=== PATIENT | male | born 1975 | race Caucasian/White ===

== ENCOUNTER 2024-11-02 19:10 | Emergency (ER) | payer SELFPAY ==
[~2024-11-02] VITALS: Ht 175.3 cm; Wt 102.1 kg
--- NOTE | 2024-11-02 19:22 | EKG ---
[facility] Test Date: 2024-11-02 Test Time: 19:17:26 Pat Name: MISBAH SEGUNDO Department: ED Room: Gender: M Spring Former Machine: [facility] : 1975 Requested By: CHEPE GOLDMAN Order Number: [id number] Reading MD: Yuriy Allen Measurements Intervals [place] Rate: 115 P: 0 DE: 0 QRS: 33 QRSD: 90 T: 0 QT: 321 QTc: 446 Interpretive Statements Atrial fibrillation Low voltage, precordial leads Nonspecific T abnormalities, diffuse leads No previous ECG available for comparison Electronically Signed On 11-03-2024 12:12:11 ALUMINUM HYDROXIDE PROCESS OPERATOR by Yuriy Allen Please click the below link to view image of tracing.
--- NOTE | 2024-11-02 19:29 | ERN ---
ED Note History of Present Illness Stated Complaint: STERNAL CHEST PAIN, SUBSIDED Chief Complaint: Chest Pain Time Seen by MD: 19:13 Dictation: This is a 49-year-old male sent from [facility] correction[facility] for evaluation of a substernal chest pain. Apparently patient started complaining of pain around 5:25 p.m. and it appears that the facility gave him aspirin. By the time he came to the ER his chest pain has subsided. He denied any loss of consciousness but does admit to some palpitations. He stated that when he started feeling the chest discomfort he went back to his bunk and wanted to rest. He got up to go get some water when he felt dizzy. No diaphoresis. He is afebrile 97.8 heart rate 116 respirations 16 blood pressure 130/75 with a pulse oximetry of 98% on room air His chronic medical problems include coronary artery disease with a history of VA and stents, hypertension. Patient stated that he had 1 stent put in in [place] for years ago. Also reports irregular heart rhythm in the past but does not recall being placed on any kind of anticoagulation other than the aspirin Allergies: Coded Allergies: No Known Drug Allergies (Unverified Allergy, Unknown, 11/02/24) Past Medical History Past Medical History: CAD, Heart Disease, Hypertension, VA Surgical History: Other Surgical History Other: STENT PLACEMENT Family History: Negative Social History: Negative RN Note Reviewed/Agreed w/PFSH: Yes Review of System Dictation Constitutional: Negative for fever,chills, and weight loss Eyes: Negative for injury, pain,redness, and discharge ENT: Negative for injury,pain or swelling Cardiovascular: Positive for chest pain, palpitations, and edema Respiratory: Negative for shortness of breath, cough, and wheezing, Abdomen/GI: Negative for abdominal pain, nausea, vomiting, diarrhea, and constipation Back: Negative for injury and pain : Negative for injury, bleeding and discharge MS/Extremity: Negative for injury and deformity Skin: Negative for rash, and discoloration Neuro: Negative for headache, weakness, numbness, tingling, and seizure Psych: Negative for suicide ideation, homicidal ideation, and hallucinations Initial Vital Sign VS Vital Signs Date Time Temp Pulse Resp B/P (MAP) Pulse Ox O2 Delivery O2 Flow Rate FiO2 11/02/24 19:12 97.9 116 16 130/75 98 Room Air* 0 21 Physical Exam Dictation General: awake, alert, NAD obese handcuffs on both the hands to the front and also change on the legs. Officers at bedside Head/Face: Normocephalic, atraumatic Eyes: PERRL, EOMI, vision at baseline ENT: oral cavity clear, TMs clear, no signs of infection Neck: Trachea midline, supple, no nuchal rigidity Cardiovascular: RRR, normal S1/S2, No MRGs, no JVD Respiratory: CTAB, no respiratory distress, No rales or wheezes Abdomen: Soft, non-tender, obese, normal bowel sounds, no guarding or rebound. Skin: Warm, dry, normal turgor, no rash MS/Extremity: Pulses equal, no cyanosis, neurovascular intact, FROM Neuro: COAx4, GCS 15, strength 5/5, CN 2-12 intact, normal cerebellar exam, normal gait, Psych: Normal behavior, mood, and affect normal Extremities-trace edema without any palpable cords, Homans sign is negative Results (Laboratory/Radiology) Laboratory/Radiology Laboratory Tests Test 11/02/24 19:31 White Blood Count 8.5 K/uL (4.8-10.8) Red Blood Count 4.84 MIL/uL (4.50-6.20) Hemoglobin 14.2 g/dL (14.0-18.0) Hematocrit 42.1 % (42-54) Mean Corpuscular Volume 87.0 fL (79-99) Mean Corpuscular Hemoglobin 29.3 pg (27.0-33.0) Mean Corpuscular Hemoglobin Concent 33.7 g/dL (32.0-36.0) Red Cell Distribution Width 12.3 % (11.0-15.5) Platelet Count 266 K/uL (130-400) Mean Platelet Volume 9.4 fL (7.5-10.5) Immature Granulocyte % (Auto) 1.7 % (0-1) H Neutrophils (%) (Auto) 69.1 % (40.0-77.0) Lymphocytes (%) (Auto) 18.8 % (21.0-51.0) L Monocytes (%) (Auto) 7.8 % (3.0-13.0) Eosinophils (%) (Auto) 1.8 % (0.0-8.0) Basophils (%) (Auto) 0.8 % (0.0-5.0) Neutrophils # (Auto) 5.9 K/uL (1.8-7.7) Lymphocytes # (Auto) 1.6 K/uL (1.0-4.8) Monocytes # (Auto) 0.7 K/uL (0.1-1.0) Eosinophils # (Auto) 0.15 K/uL (0.00-0.70) Basophils # (Auto) 0.07 K/uL (0.00-0.20) Absolute Immature Granulocyte (auto 0.14 K/uL (0-1) Nucleated Red Blood Cells 0.0 % (0.0-0.19) Prothrombin Time 10.3 SEC (9.6-11.6) Prothromb Time International Ratio <= 0.93 (0.85-1.15) Activated Partial Thromboplast Time 22.8 SEC (26.3-35.5) L Sodium Level 135 mmol/L (136-145) L Potassium Level 3.7 mmol/L (3.5-5.1) Chloride Level 102 mmol/L (101-111) Carbon Dioxide Level 25 mmol/L (21-32) Blood Urea Nitrogen 13 mg/dL (7-18) Creatinine 1.0 mg/dL (0.5-1.3) Glomerular Filtration Rate Calc 92 mL/min (>90) Random Glucose 178 mg/dL (70-105) H Total Calcium 8.3 mg/dL (8.5-10.1) L Total Creatine Kinase 70 U/L (21-232) Troponin I < 0.05 ng/mL (0.00-0.05) Troponin I High Sensitivity 34 ng/L (4-75) B-Type Natriuretic Peptide < 5 pg/mL (0-100) Labs Reviewed?: Yes EKG Comment: Twelve lead EKG done on 11/02/2024 at 7:17 p.m. showed a heart rate of 115, QRS 90 QT/QTC 321/446 Impression extremely low voltage overall and atrial fibrillation with rapid ventricular response no acute ST elevations noted. There is artifact and it is hard to say if there have been any small Q's in the inferior leads Interpreted by ER MD Dr. Goldman Repeat EKG on 11/02/2024 at 9:54 p.m. showed a heart rate of 101, W[place] interval 68, QRS 100, QT/QTC 359/465 Impression-normal sinus rhythm with sinus tachycardia no evidence of any acute STT wave changes noted. Overall still remains low voltage. Interpreted by ER MD Dr. Goldman X-RAY Comment: PATIENT: MISBAH SEGUNDO MR#: [id number] : 1975 SEX: M AGE: 49 LOCATION: [facility] ORDER 14 STATUS: REG ER REPORT#: [id number] SERVICE 13 REASON: CHEST PAIN ORDERING PHYSICIAN: CHEPE GOLDMAN MD PROCEDURE: CXR1VW - CHEST 1VW CHEST 1VW CLINICAL HISTORY: CHEST PAIN COMPARISON: None TECHNIQUE: Single view of the chest was obtained. FINDINGS: Lungs are clear. The cardiac size and mediastinum are unremarkable. The bony structures are within normal limits. IMPRESSION: No acute cardiopulmonary process identified. DICTATED BY: BLANCA NEGRO DO DATE: 11/02/242043 ELECTRONICALLY SIGNED BY: BLANCA NEGRO DO DATE: 11/02/242050 ED Course ED Course Orders Procedure Category Date Status Time B-Type Natriuretic LAB 11/02/24 Complete Peptide 19:14 Chest 1vw RAD 11/02/24 Resulted 19:14 12 Lead Ekg Tracing- EKG 11/02/24 Complete Technical 19:14 Oxygen By Nc/Pulse Ox CPOE 11/02/24 Transmitted 19:14 Maintain Iv CPOE 11/02/24 Transmitted 19:14 Iv Insertion CPOE 11/02/24 Transmitted 19:14 Cardiac Monitoring CPOE 11/02/24 Transmitted 19:14 Pulse Oximetry With CPOE 11/02/24 Transmitted Vs And Prn 19:14 Cbc With Differential LAB 11/02/24 Complete 19:14 Activity: Br W/Brp CPOE 11/02/24 Transmitted With Assist 19:14 Creatine Kinase, Total LAB 11/02/24 Complete 19:14 Troponin Poc Order LAB 11/02/24 Complete Only 19:14 Bedside Troponin-I LAB.ER 11/02/24 Complete (Poc) 19:14 Basic Metabolic Panel LAB 11/02/24 Complete 19:14 Vital Signs Per CPOE 11/02/24 Verified Routine 19:14 Pt And Ptt LAB 11/02/24 Complete 19:31 Metoprolol Tartrate PHA 11/02/24 Complete (Lopressor) 21:30 12 Lead Ekg Tracing- EKG 11/02/24 Logged Technical 21:15 Troponin I High LAB 11/02/24 Complete Sensitivity 22:56 Current Medications Medications (Trade) Dose Ordered Sig/Terri Route PRN Reason Start Time Stop Time Status Last Admin Dose Admin Metoprolol Tartrate (loprESSOR) 5 mg ONCE ONCE IV 11/02/24 21:30 11/02/24 21:31 DC 11/02/24 21:30 Vital Signs Date Time Temp Pulse Resp B/P (MAP) Pulse Ox O2 Delivery O2 Flow Rate FiO2 11/03/24 00:46 97.9 96 18 110/60 95 Room Air* 0 21 11/02/24 23:11 95 20 94/59 95 Room Air* 0 21 11/02/24 22:24 98 20 92/53 95 Room Air* 0 21 11/02/24 21:30 116 14 112/64 93 Room Air* 0 21 11/02/24 21:30 116 112/64 11/02/24 19:38 97.5 115 20 119/63 93 Room Air* 0 21 11/02/24 19:13 97.9 116 16 130/75 98 Room Air 11/02/24 19:12 97.9 116 16 130/75 98 Room Air* 0 21 We will perform diagnostic labs, advanced imaging and administer medications according to the patient's complaint. Once the results are available, will review and personally interpreted the labs to rule out any acute life- threatening emergency the trach require immediate intervention and treatment. I will then re-evaluate the patient after treatment and diagnostic exams have r eturn to determine whether the patient requires any further testing, can safely be discharged home or need further admission to hospital for additional treatment and evaluation. Labs reviewed CBC is normal BNP 7 showed a sodium of 135 BUN and creatinine are 13 and 1.0 with a glucose of 178. Brain natriuretic peptide less than 5. CK 70 troponins negative. Chest x-ray unremarkable for any acute infiltrate. Twelve lead EKG showed a lot of artifact and initially appeared to have atrial fibrillation with rapid ventricular response at heart rate of 116. With well-preserved blood pressure Patient responded very well to a very low dose of Lopressor and repeat EKG showed a normal sinus rhythm. Initially wanted to pursue transferred to [place] for inpatient care however patient has remained completely symptom-free and feels significantly better with improved heart rate. Troponins have been negative. He will be discharged to the correctional facility to follow up with PCP and referral to Cardiology. HEART Score Response (Comments) Value History: Moderate suspicion (+1) 1 EKG: Repolarization changes 1 Age: 45-65yrs (+1) 1 Risk Factors: 1-2 risk factors (+1) 1 Initial Troponin: Normal limit (0) 0 HEART Score Risk: Low Risk for MACE (1-3) Total 4 Medical Decision Making MDM MDM: Differential diagnosis: Unstable angina, chest pain related to AFib, gastroesophageal reflux disease, chest wall pain Rationale: Tests considered and ordered secondary to shared decision making include: Previous outside records reviewed: Old ER visits. Risk of complication and/or morbidity or mortality of patient management: None Medications-Per medication reconciliation Need for hospitalization: Patient does not meet criteria for hospitalization. Need for emergency major/minor surgery: No There are no social concerns with this patient. Prescription drug management Prescriptions will include symptomatic care Patient's prior external medical records from other ER visits were reviewed by me as indicated. Prior testing and results from previous visits were reviewed. Prior tests were taken into account with medical decision making and resource utilization, independent historian/historians were used to obtain complete medical history. I independently interpreted the test that were performed, results were reviewed by me and considered findings on radiology if ordered. Medical management and examination interpretation discussions were had by me w ith other qualified healthcare professionals as indicated for the patient's care. Problem List Problem List: (1) Coronary artery disease (2) History of heart artery stent (3) Hypertension (4) Paroxysmal atrial fibrillation DX & DISP Disposition: Discharge Departure Impression: Primary Impression: Coronary artery disease Additional Impressions: History of heart artery stent, Hypertension, Paroxysmal atrial fibrillation Condition: Stable Additional Instructions: Patient and the caregiver have been informed of all the diagnostic tests and the imaging conducted during the today's visit to the emergency room and has verbalized understanding of the results I have personally reviewed and interpreted all diagnostic exams performed here in the ER today as well as the vital signs documented by the nursing staff. The patient is now being discharged to correctional facility and should follow up with the primary care physician or the specialist as directed by the ER staff. Patient needs a referral to Cardiology to re-evaluate with an echocardiogram. THOPU,CHEPE R MD Nov 02, 2024 19:29
[2024-11-02 19:40] LABS: BASOPHILS # (AUTO) 0.07 K/uL (0.00-0.20); BASOPHILS % (AUTO) 0.8 % (0.0-5.0); EOSINOPHILS # (AUTO) 0.15 K/uL (0.00-0.70); EOSINOPHILS % (AUTO) 1.8 % (0.0-8.0); HEMATOCRIT 42.1 % (42-54); IMMATURE GRANULOCYTE ABSOLUTE 0.14 K/uL (0-1); LYMPHOCYTES # (AUTO) 1.6 K/uL (1.0-4.8); LYMPHOCYTES % (AUTO) 18.8 % (21.0-51.0); MEAN CORPUSCULAR HEMOGLOBIN 29.3 pg (27.0-33.0); MEAN CORPUSCULAR HGB CONC 33.7 g/dL (32.0-36.0); MONOCYTES # (AUTO) 0.7 K/uL (0.1-1.0); MONOCYTES % (AUTO) 7.8 % (3.0-13.0); NEUTROPHILS # (AUTO) 5.9 K/uL (1.8-7.7); NEUTROPHILS % (AUTO) 69.1 % (40.0-77.0); PLATELET COUNT (AUTO) 266 K/uL (130-400); RED BLOOD CELL COUNT(AUTO) 4.84 MIL/uL (4.50-6.20); RED CELL DISTRIBUTION WIDTH 12.3 % (11.0-15.5); WHITE BLOOD COUNT (AUTO) 8.5 K/uL (4.8-10.8)
[2024-11-02 20:02] LABS: POTASSIUM 3.7 mmol/L (3.5-5.1)
[2024-11-02 20:14] LABS: B-TYPE NATRIURETIC PEPTIDE < 5 pg/mL (0-100)
--- NOTE | 2024-11-02 20:51 | HMCIMG ---
CHEST 1VW CLINICAL HISTORY: CHEST PAIN COMPARISON: None TECHNIQUE: Single view of the chest was obtained. FINDINGS: Lungs are clear. The cardiac size and mediastinum are unremarkable. The bony structures are within normal limits. IMPRESSION: No acute cardiopulmonary process identified.
[2024-11-02 21:07] LABS: INR <= 0.93 (0.85-1.15); PROTHROMBIN TIME 10.3 SEC (9.6-11.6)
[2024-11-02 21:09] LABS: PARTIAL THROMBOPLASTIN TIME 22.8 SEC (26.3-35.5)
[2024-11-02] MEDS: metoPROLOL tartRATE 1 MG/ML 5ML VIAL IV ONE (21:30)
--- NOTE | 2024-11-02 23:35 | NUR ---
[facility] NOTIFIED SPOKE WITH CARMEN AT [facility] MANAGED CARE, PATIENT WILL BE DISCHARGED BACK TO THE FACILITY. MD WILL BE RECOMMENDING FOLLOW UP WITH CARDIOLOGY FOR A 2D ECHOCARDIOGRAM AND FURTHER TREATMENT.
[2024-11-03 00:46] VITALS: BP 110/60; PULSE 96; RESP 18; TEMP 97.9; O2SAT 95
--- NOTE | 2024-11-03 17:50 | EKG ---
[facility] Test Date: 2024-11-02 Test Time: 21:54:41 Pat Name: MISBAH SEGUNDO Department: ED Room: Gender: M Industrial [employer]: [facility] : 1975 Requested By: CEHPE GOLDMAN Order Number: [id number] Reading MD: Yuriy Allen Measurements Intervals [place] Rate: 101 P: 0 IN: 68 QRS: 28 QRSD: 100 T: 0 QT: 359 QTc: 465 Interpretive Statements Sinus tachycardia Low voltage, precordial leads Compared to ECG 11/02/2024 19:17:26 Atrial fibrillation no longer present T-wave abnormality no longer present Electronically Signed On 11-04-2024 09:54:47 DRIFTMAN by Yuriy Allen Please click the below link to view image of tracing.
== END 2024-11-03 00:48 ==
LOC: EDH 19:10
DX: I25.10 Atherosclerotic heart disease of native coronary artery without angina pectoris (principal); I48.0 Paroxysmal atrial fibrillation; I10 Essential (primary) hypertension; I25.2 Old myocardial infarction; Z95.5 Presence of coronary angioplasty implant and graft
CPT/HCPCS: 99285; 96374; 71045; 82550; 84484 ×2; 80048; 83880; 85025; 85610; 85730; 36415; 93005 ×2; J3490; 99284